=== PATIENT | male | born 1955 | race Caucasian/White ===

== ENCOUNTER 2021-03-06 16:11 | Observation (INO) ==
[2021-03-06 17:37] LABS: Basophils % 0.1 %; Eosinophils # 0.1 K/mcL (0.0-0.6); Eosinophils % 0.7 %; Hematocrit 25.7 % (37.5-50.1); Hemoglobin 8.8 g/dL (12.9-16.9); Immature Granulocytes % 0.8 % (0-4); Immature Platelets 7.9 % (1.1-6.1); Lymphocytes # 0.8 K/mcL (0.6-4.6); Lymphocytes % 5.8 %; Mean Corpuscular HGB Conc 34.2 g/dL (31.6-35.5); Mean Corpuscular Hemoglobin 34.4 pg (28.0-33.3); Mean Corpuscular Volume 100.4 fL (83.0-100.0); Mean Platelet Volume 12.1 fL (9.4-12.4); Monocytes # 2.6 K/mcL (0.0-1.3); Monocytes % 19.5 %; Red Blood Count 2.56 M/mcL (4.19-5.50); Red Cell Distribution Width 19.2 % (11.5-14.5); Segmented Neutrophils % 73.1 %; White Blood Count 13.2 K/mcL (4.3-11.1)
[2021-03-06 17:48] LABS: Neutrophils # 9.7 K/mcL (1.6-8.9); Platelet Count 51 K/mcL (140-400)
[2021-03-06 17:49] LABS: INR 2.3; Prothrombin Time 26.1 Seconds (9.4-12.1)
[2021-03-06 17:50] LABS: Platelet Estimate Decreased (Normal)
[2021-03-06 18:04] LABS: Albumin 2.9 g/dL (3.5-5.7); Albumin/Globulin Ratio 1.1 (1.1-2.2); Bilirubin,Total 9.6 mg/dL (0.3-1.0); Calcium 8.7 mg/dL (8.6-10.3); Globulin 2.6 g/dL (2.4-3.5); Potassium 5.4 mEq/L (3.5-5.1); Total Protein 5.5 g/dL (6.4-8.9)
[2021-03-06] MEDS ORDERED: *HR* FentaNYL (PF) 100 MCG/2 ML VIAL IVP ONE (21:00)
[2021-03-06] MEDS: 0.9 % Sodium Chloride 1,000 ML IV ONE (21:04)
[2021-03-06] MEDS ORDERED: *HR* HYDROcodone/Acet 5/325 mg TABLET PO ONE (21:12)
[2021-03-06] MEDS ORDERED: Ondansetron 4 MG/2 ML VIAL IVP PRN (22:12)
[2021-03-06] MEDS ORDERED: Melatonin 3 MG TABLET PO PRN (22:12)
[2021-03-06] MEDS ORDERED: Naloxone 0.4 MG/ML INJ IVP PRN (22:12)
[2021-03-06 22:53] LABS: Bilirubin,Urine Negative (Negative); Blood,Urine Negative (Negative); Clarity,Urine Clear (Clear); Color,Urine Dark-Yellow (Yellow); Glucose,Urine (UA) Normal (Normal); Ketones,Urine Negative (Negative); Leukocyte Esterase,Urine Negative (Negative); Nitrite,Urine Negative (Negative); PH,Urine 5.5 pH Units (5.0-8.0); Protein,Urine Trace mg/dL (Neg-Trace); Specific Gravity,Urine 1.017 (1.010-1.025); Urobilinogen,Urine Normal (Normal)
[2021-03-06] MEDS: Albumin Human 5% 12.5 GM/250 ML IV.SOLN IVC SCH (22:56)
[2021-03-07] MEDS ORDERED: 0.9 % Sodium Chloride 1,000 ML ONE (01:31)
[2021-03-07] MEDS: 0.9 % Sodium Chloride 1,000 ML IV ONE (01:36)
[2021-03-07] MEDS: 0.9 % Sodium Chloride 1,000 ML IVC ONE ×2 (01:36→01:49)
[2021-03-07] MEDS: Albumin Human 5% 12.5 GM/250 ML IV.SOLN IVC SCH (02:53)
[2021-03-07 03:02] LABS: Basophils % 0.1 %; Eosinophils # 0.2 K/mcL (0.0-0.6); Eosinophils % 1.7 %; Hematocrit 25.9 % (37.5-50.1); Hemoglobin 8.7 g/dL (12.9-16.9); Immature Granulocytes % 0.6 % (0-4); Immature Platelets 7.9 % (1.1-6.1); Lymphocytes # 0.9 K/mcL (0.6-4.6); Lymphocytes % 7.1 %; Mean Corpuscular HGB Conc 33.6 g/dL (31.6-35.5); Mean Corpuscular Hemoglobin 34.7 pg (28.0-33.3); Mean Corpuscular Volume 103.2 fL (83.0-100.0); Mean Platelet Volume 12.2 fL (9.4-12.4); Monocytes # 2.3 K/mcL (0.0-1.3); Monocytes % 19.3 %; Neutrophils # 8.5 K/mcL (1.6-8.9); Red Blood Count 2.51 M/mcL (4.19-5.50); Red Cell Distribution Width 19.2 % (11.5-14.5); Segmented Neutrophils % 71.2 %
[2021-03-07 03:08] LABS: INR 2.4; Platelet Count 42 K/mcL (140-400); Prothrombin Time 27.4 Seconds (9.4-12.1)
[2021-03-07 03:20] LABS: Albumin 2.8 g/dL (3.5-5.7); Albumin/Globulin Ratio 1.1 (1.1-2.2); Bilirubin,Total 8.7 mg/dL (0.3-1.0); Calcium 8.5 mg/dL (8.6-10.3); Globulin 2.5 g/dL (2.4-3.5); Magnesium 2.3 mg/dL (1.6-2.6); Phosphorous 4.6 mg/dL (2.7-4.5); Potassium 5.6 mEq/L (3.5-5.1); Total Protein 5.3 g/dL (6.4-8.9)
[2021-03-07 03:21] LABS: Anisocytosis 1+ (Not Present); Macrocytosis Present (Not Present); Poikilocytosis 1+ (Not Present)
[2021-03-07 03:22] LABS: Platelet Estimate Decreased (Normal)
[2021-03-07] MEDS ORDERED: Calcium Gluconate 1gm/50mL 1 GM/50 ML BAG IVPB ONE (04:00)
[2021-03-07 08:42] LABS: Hematocrit 20.8 % (37.5-50.1); Hemoglobin 7.5 g/dL (12.9-16.9); Mean Corpuscular HGB Conc 36.1 g/dL (31.6-35.5); Mean Corpuscular Hemoglobin 35.9 pg (28.0-33.3); Mean Corpuscular Volume 99.5 fL (83.0-100.0); Mean Platelet Volume 12.4 fL (9.4-12.4); Red Blood Count 2.09 M/mcL (4.19-5.50); Red Cell Distribution Width 19.2 % (11.5-14.5); White Blood Count 10.3 K/mcL (4.3-11.1)
[2021-03-07 08:44] LABS: Platelet Count 40 K/mcL (140-400)
[2021-03-07] MEDS ORDERED: cefTRIAXone 1,000 MG in Water for inj. (sterile) 10 ML IVP SCH (09:00)
[2021-03-07] MEDS ORDERED: cefTRIAXone 1,000 MG in 0.9 % Sodium Chloride Mini Bag 100 ML IVPB SCH (09:00)
[2021-03-07 09:01] LABS: Calcium 8.6 mg/dL (8.6-10.3); Potassium 5.7 mEq/L (3.5-5.1)
[2021-03-07] MEDS ORDERED: Albumin 25% 25gram/100mL 25 GM/100 ML IV.SOLN IVPB ONE ×2 (10:37→15:20)
[2021-03-07] MEDS ORDERED: Pantoprazole 40 MG VIAL IVP SCH (11:30)
[2021-03-07] MEDS ORDERED: Lactulose 200 GM, Sodium Chloride IRRigation 700 ML RC ONE ×2 (13:33→20:00)
[2021-03-07] MEDS ORDERED: Ipratropium/Albuterol Neb 3 ML IH PRN (13:44)
[2021-03-07] MEDS ORDERED: *HR* Digoxin 0.125 MG TABLET PO SCH (13:45)
[2021-03-07] MEDS ORDERED: Albuterol 2.5 MG/3 ML NEBULIZER IH ONE (13:56)
[2021-03-07 14:33] LABS: Influenza A PCR Negative (Negative); Influenza B PCR Negative (Negative); Resp. Syncytial Virus PCR Negative (Negative)
[2021-03-07 14:49] LABS: SARS-CoV-2 by PCR (In House) Negative (Negative)
[2021-03-07 14:50] LABS: Hemoglobin 8.1 g/dL (12.9-16.9)
[2021-03-07] MEDS ORDERED: Lactulose Oral Soln 20 GM/30 ML UDC PO SCH (15:00)
[2021-03-07] MEDS ORDERED: 0.9 % Sodium Chloride 250 ML IVC SCH (15:15)
[2021-03-07] MEDS ORDERED: Albuterol Neb 0.63 MG/3 ML VIAL ONE (15:34)
[2021-03-07 16:15] LABS: VBG HCO3 17 mEq/L (21-27); VBG PCO2 42 mmHg (41-51); VBG PH 7.21 pH Units (7.32-7.42); VBG PO2 41 mmHg (25-50)
[2021-03-07 18:54] VITALS: BP 87/46
[2021-03-07] MEDS ORDERED: Norepinephrine 4 MG/254 ML IV.SOLN IVC SCH (19:15)
== END 2021-03-07 19:30 | disposition short-term general hospital (02) ==
LOC: 3NENU 16:11 → EMEROOARM 16:11 → SUATTDRO 20:39 → 3NENU 21:48
PROVIDERS: ADMIT Family Medicine; ATTEND Internal Medicine